=== PATIENT | female | born 1965 | race Caucasian/White ===

== ENCOUNTER → 2016-06-16 | Outpatient (CLI) | payer BC ==
[~2016-06-16] MED LIST: ASPI-999 PO; BENA20TA2 PO; FLUT9.9S NS; LORA10TA76 PO; PANT40TA2 PO
--- OUTSIDE RECORDS SUMMARY | 2016-06-16 07:34 | XMS REPORT | Continuity of Care Document ---
Author Author [facility] Organization [facility] Address Unknown Phone Unavailable Care Team Providers Care Professor Of Surgery Name Role Phone ARMAAN CASTREJON DO PCP Insurance Providers Payer Name Policy Number Subscriber Name Relationship [facility] [id number] EdiliaNabeel Rivera 18 Self / Same As Patient Advance Directives Directive Response Recorded Date/Time Advance Directives No 03/21/16 10:05am Health Care Power of Sap Gr[employer] Security No 03/21/16 10:05am Resuscitation Status Full Code 03/21/16 10:05am Problems No problem information available. Medications Current Home Medications Medication Dose Units Route Directions Days/Qty Instructions Start Date Aspirin 81 Mg 81 Mg Oral Daily 03/19/16 Benazepril Hcl 20 Mg 20 Mg Oral Twice A Day 03/19/16 Loratadine 10 Mg 10 Mg Oral Daily 03/19/16 Fluticasone Propionate 9.9 Ml 1 Ml Nasal As Needed 03/19/16 Pantoprazole Sodium 40 Mg 40 Mg Oral Daily 90 03/21/16 Social History Social History Problem Response Recorded Date/Time Alcohol Use Denies Use 03/21/2016 10:05am Recreational Drug Use No 03/21/2016 10:05am Recent Foreign Travel No 03/21/2016 10:05am Recent Infectious Disease Exposure No 03/21/2016 10:05am Sexually Transmitted Disease No 03/21/2016 10:05am HIV/AIDS No 03/21/2016 10:05am Smoking Status Never a Smoker 03/21/2016 10:05am Recent Hopitalizations No 03/21/2016 10:05am Sexually Transmitted Disease No 03/21/2016 10:05am Query Response Start Date Stop Date Smoking Status Never a Smoker Hospital Discharge Instructions Patient Instructions Physician Instructions New, Converted, or Re-Newed RX: RX on Chart Follow Up PRN Activity as tolerated High Fiber Diet 25g or more per day Avoid Alcohol, Caffeine, Spicy Kief and Acid foods. Drink 64 fluid oz or more of fluids per day. Symptoms to Report: Fever over 101 degree F, Nausea/Vomiting If any problems/questions: Contact your physician or go to Emergency Room Plan of Care Discharge Date 03/21/16 1:07pm Instructions/Education Provided COLONOSCOPY EGD-ESOPHAGOGASTRODUODENOSCOPY High Fiber Diet Prescriptions See Medication Section Functional Status No functional status results. Allergies, Adverse Reactions, Alerts Allergen Type Severity Reaction Status Last Updated Penicillins ([id number]) Allergy Intermediate GI UPSET SEVERE Active 03/19 Erythromycin base Allergy Intermediate GI UPSET Active 03/19/16 Immunizations No immunization records. Vital Signs Acute Vital Signs Vital Response Date/Time Temperature (Fahrenheit) 98.1 degrees F (97.6 - 99.5) 03/21/2016 1:07pm Temperature (Calculated Celsius) 36.28259 degrees C (36.4 - 37.5) 03/21/2016 1:07pm Temperature Source Tympanic 03/21/2016 1:07pm Pulse Rate (adult) 87 bpm (60 - 90) 03/21/2016 1:07pm Respiratory Rate 16 bpm (12 - 24) 03/21/2016 1:07pm O2 Sat by Pulse Oximetry 93 % (88 - 100) 03/21/2016 1:07pm Blood Pressure 117/77 mm Hg 03/21/2016 1:07pm Blood Pressure Mean 94 mm Hg 03/21/2016 10:05am Pain Numeric Pain Scale 1 03/21/2016 1:07pm Pain Intensity 0 03/21/2016 1:00pm Height (Feet) 5 feet 03/21/2016 10:28am Height (Inches) 6.00 inches 03/21/2016 10:28am Height (Calculated Centimeters) 167.533164 cm 03/21/2016 10:28am Weight (Pounds) 222 pounds 03/21/2016 10:28am Weight (Ounces) 0.0 oz 03/21/2016 10:28am Weight (Calculated Grams) 219230.51 gm 03/21/2016 10:28am Weight (Calculated Kilograms) 100.251960 kilograms 03/21/2016 10:28am Calculated BMI 35.8 03/21/2016 10:28am Results No known relevant diagnostic tests, laboratory data and/or discharge summary. Procedures Procedure Status Date Provider(s) Diagnostic colonoscopy Completed 03/21/16 ASHA SINGH MD Esophagogastroduodenoscopy (EGD) with dilation Completed 03/21/16 ASHA SINGH MD Encounters Encounter Location Arrival/Admit Date Discharge/Depart Date Attending Provider Departed Surgical Day Care [facility] 03/21/16 9:59am 1:07pm ASHA SINGH MD Registered Clinic [facility] 03/19/16 6:07am ASHA SINGH MD Registered Clinic [facility] 02/28/16 2:37pm ARMAAN CASTREJON DO
--- NOTE | 2016-06-16 09:20 | Diagnostic Imaging Report ---
PROCEDURE: MRI lumbar spine. TECHNIQUE: Multiplanar, multisequence MRI of the lumbar spine was performed without contrast. INDICATION: Back pain. FINDINGS: The alignment of the lumbar spine is normal. The vertebral body heights are well maintained. There is no spondylolysis or spondylolisthesis. No fractures are identified. Conus medullaris is seen at L1 and is normal in appearance. At T11-T12, there is slight loss of disc height and signal intensity and mild annular bulging. T12-L1 is unremarkable. L1-L2 is unremarkable. L2-L3 is unremarkable. At L3-L4, there is some minimal annular bulging with slight effacement of the ventral thecal sac. At L4-L5, there is some hypertrophic degenerative facet disease with thickening of the ligamentum flavum. At L5-S1, there is loss of disc height and signal intensity. There are degenerative changes in the endplates. There is broad-based annular bulging more prominent in a left lateral distribution. There is also some facet disease with thickening of the ligamentum flavum. There is slight effacement of the ventral thecal sac with some left neuroforaminal encroachment and mild encroachment upon the left lateral recess. The abdominal aorta is nonaneurysmal. There are no other focal soft tissue abnormalities. IMPRESSION: Mild diffuse lumbar spondylosis. This is most severe at L5-S1 where there is some broad-based annular bulging and facet disease. There is effacement of the left ventral thecal sac as well as encroachment upon the left neural foramen and left lateral recess. Dictated by: Dictated on workstation # [id number]
== END ==
LOC: RAD 07:31
PROVIDERS: ATTEND Nurse Practitioner
DX: M54.16 Radiculopathy, lumbar region (principal)
CPT/HCPCS: 72148

== ENCOUNTER → 2016-07-06 | Outpatient (CLI) | payer BC ==
--- OUTSIDE RECORDS SUMMARY | 2016-07-06 10:38 | XMS REPORT | Continuity of Care Document ---
Author Author [facility] Organization [facility] Address Unknown Phone Unavailable Care Team Providers Care Specifications Writer Name Role Phone ARMAAN CASTREJON DO PCP Insurance Providers Payer Name Policy Number Subscriber Name Relationship [facility] [id number] EdiliaNabeel Rivera 18 Self / Same As Patient Advance Directives Directive Response Recorded Date/Time Advance Directives No 03/21/16 10:05am Health Care Power of Health Program Director No 03/21/16 10:05am Resuscitation Status Full Code [...] more per day Avoid Alcohol, Caffeine, Spicy Royer and Acid foods. Drink 64 fluid oz [...] Type Severity Reaction Status Last Updated Penicillins ([id number]) Allergy Intermediate GI UPSET SEVERE Active 03/19 Erythromycin base Allergy Intermediate GI UPSET Active 03/19/16 Immunizations No immunization records. Vital Signs Acute Vital Signs Vital Response Date/Time Temperature (Fahrenheit) 98.1 degrees F (97.6 - 99.5) 03/21/2016 1:07pm Temperature (Calculated Celsius) 36.33731 degrees C (36.4 - 37.5) 03/21/2016 1:07pm [...] 6.00 inches 03/21/2016 10:28am Height (Calculated Centimeters) 167.694604 cm 03/21/2016 10:28am Weight (Pounds) 222 pounds 03/21/2016 10:28am Weight (Ounces) 0.0 oz 03/21/2016 10:28am Weight (Calculated Grams) 113705.51 gm 03/21/2016 10:28am Weight (Calculated Kilograms) 100.384889 kilograms 03/21/2016 10:28am Calculated BMI 35.8 03/21/2016 10:28am Results No known relevant diagnostic tests, laboratory data and/or discharge summary. Procedures Procedure Status Date Provider(s) Diagnostic colonoscopy Completed 03/21/16 ASHA SINGH MD Esophagogastroduodenoscopy (EGD) with dilation Completed 03/21/16 ASHA SINGH MD Encounters Encounter Location Arrival/Admit Date Discharge/Depart Date Attending Provider Departed [facility] Day [facility] 03/21/16 9:59am 1:07pm ASHA SINGH MD Registered Clinic [facility] 03/19/16 6:07am ASHA SINGH MD Registered Clinic [facility] 02/28/16 2:37pm ARMAAN CASTREJON DO
--- NOTE | 2016-07-06 12:50 | Diagnostic Imaging Report ---
PROCEDURE: CT head without contrast. TECHNIQUE: Multiple contiguous axial images were obtained through the brain without the use of intravenous contrast. INDICATION: Memory loss. FINDINGS: There is no intracranial hemorrhage, edema, or mass effect. The brain parenchyma and coffey-white matter differentiation is preserved. There is no hydrocephalus. No extra-axial fluid collection seen. The calvarium, the paranasal sinuses and orbits visualized portions appear grossly unremarkable. IMPRESSION: Unremarkable exam. Dictated by: Dictated on workstation # [id number]
--- NOTE | 2016-07-08 23:49 | ECHOCARDIOGRAPHY REPORT ---
PROCEDURE PHYSICIAN: JEREL MAYORGA DATE OF PROCEDURE: 07/06/2016 TWO DIMENSIONAL ECHOCARDIOGRAM REPORT PRIMARY PHYSICIAN: OTHER PHYSICIAN: REFERRING PHYSICIAN: Dr. Zamarripa ORDERING PHYSICIAN: INDICATION FOR THE PROCEDURE: Cardiac murmur. MEASUREMENTS DERIVED VALUES LV DIAMETER (LAX) NORMALS NORMALS Diastolic 4.5 (3.6-5.2) Eject. Fract. 60% (60%+/-6%) Systolic (2.3-3.9) Diastolic Vol. % Shortening (0.22-0.42) Systolic Vol. Aortic Root IVS THICKNESS Diastolic 1.1 (0.6-1.1) LVPW THICKNESS Diastolic 1 (0.6-1.1) LA DIAMETER Systolic 3.2 (2.1-3.7) FINDINGS: 1. Technical quality is good. 2. The left ventricle is normal in size with normal contractility. Systolic function appeared to be normal. Estimated ejection fraction 60%. 3. The left atrium is normal in size. No clot or thrombus were seen within the left atrium. 4. The right atrium and right ventricle are normal in size. No clot or thrombus were seen within the right side. 5. Mitral valve is normal in morphology. Mild mitral regurgitation noted by color Doppler flow. No mitral valve prolapse. No mitral valve stenosis. Doppler across the mitral valve showed equalization of E and A, which is suggestive of diastolic dysfunction. 6. Aortic valve is mildly calcified. No significant aortic stenosis or regurgitation was seen. 7. Tricuspid valve is normal in morphology with mild tricuspid regurgitation noted by color Doppler flow. Doppler across tricuspid valve estimated pulmonary artery pressure of 7+ right atrial pressure. 8. Pulmonic valve is functioning normally. 9. No pericardial effusion. IN CONCLUSION: 1. Normal left ventricular size and systolic function. Estimated ejection fraction 60%. Diastolic dysfunction is suggested by Doppler. 2. Mild mitral and tricuspid regurgitation. 3. Estimated pulmonary artery pressure of 15 mmHg. Job ID: [id number] Dictated Date: 07/08/2016 10:27:17 Psych Coordinator Date: 07/08/2016 23:45:04 / kellee
== END ==
LOC: CARD 10:34
PROVIDERS: ATTEND Family Medicine
DX: R01.1 Cardiac murmur, unspecified (principal); R41.3 Other amnesia
CPT/HCPCS: 70450; 93306

== ENCOUNTER → 2016-07-13 | Outpatient (CLI) | payer BC | LOC: RT 11:18 | PROVIDERS: ATTEND Family Medicine | DX: R01.1 Cardiac murmur, unspecified (principal) | CPT/HCPCS: 94060; 94726; 94729 ==

== ENCOUNTER 2016-12-05 18:20 | Emergency (ER) | payer BC ==
[~2016-12-05] VITALS: Ht 167.6 cm; Wt 99.8 kg
[2016-12-05] MEDS ORDERED: FLUO20CA42 PO (18:43)
--- NOTE | 2016-12-05 18:49 | ED Lower Extremity ---
General Chief Complaint: Lower Extremity Stated Complaint: RT ANKLE INJ Nursing Triage Note: PT STATES ROLLED R ANKLE EARLIER TODAY Nursing Sepsis Screen: No Definite Risk Source: patient History of Present Illness Time seen by provider: 18:35 Initial Comments PT STATES SHE ROLLED HER RIGHT ANKLE AT 1215 TODAY WENT BACK TO WORK, BUT PAIN HAS STEADILY GOTTEN WORSE AND SINCE AROUND 1530 SHE HAS BEEN UNABLE TO BEAR WEIGHT ON IT PT ARRIVES IN ER USING CRUTCHES NO PARESTHESIAS OR MOTOR DEFICITS PAIN IS AROUND RIGHT LATERAL MALLEOLUS NO PRIOR INJURY TO THIS ANKLE NO OTHER INJURIES PCP: DR. CASTREJON Allergies and Home Medications Allergies Coded Allergies: Penicillins (Verified Allergy, Intermediate, GI UPSET SEVERE, 03/19/16) erythromycin base (Verified Allergy, Intermediate, GI UPSET, 03/19/16) Home Medications Aspirin 81 Mg Tab.chew, 81 MG PO DAILY, (Reported) Benazepril HCl 20 Mg Tablet, 20 MG PO BID, (Reported) Fluoxetine HCl 20 Mg Capsule, 20 MG PO DAILY, (Reported) Fluticasone Propionate 9.9 Ml [place].susp, 1 ML NS PRN, (Reported) Loratadine 10 Mg Tablet, 10 MG PO DAILY, (Reported) Naproxen 500 Mg Tablet, 500 MG PO BID, #20 Prescribed by: CHRIS BORJAS on 12/05/161858 Tramadol HCl 50 Mg Tablet, 50 MG PO Q4H, #20 Prescribed by: CHRIS BORJAS on 12/05/161858 Constitutional: no symptoms reported Musculoskeletal: see HPI Skin: no symptoms reported Psychiatric/Neurological: No Symptoms Reported Past Vumokhr-Tnydsg-Rzkisw Hx Patient Social History Alcohol Use: Denies Use Recreational Drug Use: No Smoking Status: Never a Smoker Recent Foreign Travel: No Contact w/Someone Who Travel: No Recent Infectious Disease Expo: No Recent Hopitalizations: No Seasonal Allergies Seasonal Allergies: Yes Surgeries HX Surgeries: Yes (OOPHORECTOMY, L ACL RECONSTRUCTION) Surgeries: Gallbladder, Hysterectomy, Orthopedic Respiratory Hx Respiratory Disorders: No Cardiovascular Hx Cardiac Disorders: Yes Cardiac Disorders: Hypertension Neurological Hx Neurological Disorders: No Reproductive System Hx Reproductive Disorders: No Sexually Transmitted Disease: No HIV/AIDS: No 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 History: Hysterectomy, Menopausal Genitourinary Hx Genitourinary Disorders: No Gastrointestinal Hx Gastrointestinal Disorders: Yes Gastrointestinal Disorders: Gastroesophageal Reflux Musculoskeletal Hx Musculoskeletal Disorders: Yes (MILD ARTHRITIS; LEFT ACL RECONSTRUCTION) Musculoskeletal Disorders: Arthritis Endocrine Hx Endocrine Disorders: No HEENT HX ENT Disorders: Yes (GLASSES) Loss of Vision: Bilateral Hearing Impairment: Denies Cancer Hx Cancer: No Psychosocial Hx Psychiatric Problems: No Integumentary HX Skin/Integumentary Disorder: No Blood Transfusions Hx Blood Disorders: Yes (HX ANEMIA) Adverse Reaction to a Blood Tr: No (N/A) Physical Exam Vital Signs Vital Sign - Last 12Hours 12/05/16 18:35 Temp 97.4 Pulse 96 Resp 18 B/P (MAP) 136/80 Pulse Ox 96 Capillary Refill : Less Than 3 Seconds General Appearance: WD/WN, no apparent distress Ankles: left ankle normal inspection, right ankle bone tenderness, right ankle limited range of motion, right ankle soft tissue tenderness, right ankle swelling, right ankle other (TO LATERAL MALLEOLUS AREA) Feet: right foot normal inspection Neurologic/Tendon: normal sensation, normal motor functions, normal tendon functions Neurologic/Psychiatric: experimental machinist II-XII nml as tested, no motor/sensory deficits, alert, oriented x 3 Skin: normal color, warm/dry, No ecchymosis Splinting and Joint Reduction : Rigo wrap: Yes Immobilizers: Step Light Walker s/m/lg Progress/Results/Core Measures Results/Orders My Orders Orders - CHRIS BORJAS DO Ankle, Right, 3 Views (12/05/16 18:35) Rigo Bandage (12/05/16 18:52) Steplite (12/05/16 18:52) Vital Signs/I&O Vital Sign - Last 12Hours 12/05/16 12/05/16 18:35 19:03 Temp 97.4 Pulse 96 96 Resp 18 18 B/P (MAP) 136/80 Pulse Ox 96 96 Blood Pressure Mean: 98 Diagnostic Imaging Comments XRAYS RIGHT ANKLE--NO ACUTE PROCESS, PENDING RADIOLOGIST REVIEW--NO ACUTE PROCESS, PER RADIOLOGIST REPORT @ 1917 Reviewed: Reviewed by Me Departure Impression Impression: Primary Impression: Right ankle sprain Disposition: 01 HOME, SELF-CARE Condition: Stable Departure-Patient Inst. Referrals: ARMAAN CASTREJON DO (PCP/Family) Primary Care Physician Patient Instructions: Ankle Sprain (DC), Going Up and Down Curbs or Stairs With a Walker or Crutches, How to Use Crutches, How to Use an Elastic Bandage, SPLINT CARE Add. Discharge Instructions: RIGO WRAP, BOOT AND CRUTCHES NEEDED FOR COMFORT ICE TO AREA AT 20 MINUTE INTERVALS ELEVATE FOOT MUCH POSSIBLE FOLLOW UP WITH DR. CASTREJON IN 1 WEEK IF NO BETTER All discharge instructions reviewed with patient and/or family. Voiced understanding. Scripts Tramadol HCl (Ultram) 50 Mg Tablet 50 MG PO Q4H, #20 TAB Prov: CHRIS BORJAS DO 12/05/16 Naproxen (Naproxen) 500 Mg Tablet 500 MG PO BID, #20 TAB Prov: CHRIS BORJAS DO 12/05/16 CHRIS BORJAS DO Dec 05, 2016 18:49
[2016-12-05] MEDS ORDERED: NAPR500T3 PO (18:59)
[2016-12-05] MEDS ORDERED: TRAM-42 PO (18:59)
[2016-12-05 19:03] VITALS: BP 136/80
--- NOTE | 2016-12-05 19:09 | Diagnostic Imaging Report ---
INDICATION: Pain, twisted ankle. COMPARISON: None available. TECHNIQUE: Three radiographs of the right ankle dated December 05, 2016. FINDINGS: No acute fracture or dislocation. No destructive osseous process. The talar domes are unremarkable. Ankle mortise is symmetric. No suspicious radiopaque foreign body. IMPRESSION: No acute osseous abnormality. Dictated by: Dictated on workstation # [id number]
--- OUTSIDE RECORDS SUMMARY | 2016-12-06 11:34 | XMS REPORT | Continuity of Care Document ---
Author Author [facility] Organization [facility] Address Unknown Phone Unavailable Allergies Active Description Code Type Severity Reaction Onset Reported/Identified Relationship to Patient Clinical Status Yes erythromycin base [id number] Drug Allergy Moderate GI UPSET 03/19/2016 Yes Penicillins [id number] Drug Allergy Moderate GI UPSET SEVERE 03/19/2016 Medications Problems Date Dx Coded Attending Type Code Diagnosis Diagnosed By 05/21/2014 JAKOB CALDERON AERONAUTICS TEACHER Ot V76.12 09/20/2014 JAKOB CALDERON AERONAUTICS TEACHER Ot V76.12 04/28/2015 JAKOB CALDERON AERONAUTICS TEACHER Ot V76.12 06/13/2015 JAKOB CALDERON AERONAUTICS TEACHER Ot V76.12 01/26/2016 JAKOB CALDERON AERONAUTICS TEACHER Ot V76.12 OTH SCREEN MAMMO-MALIGN NEOPLASM OF JOE 02/28/2016 JAKOB CALDERON AERONAUTICS TEACHER Ot V76.12 OTH SCREEN MAMMO-MALIGN NEOPLASM OF JOE 02/29/2016 ARMAAN CASTREJON DO S Ot Z12.31 ENCNTR SCREEN MAMMOGRAM FOR MALIGNANT NE 02/29/2016 ARMAAN CASTREJON DO Ot Z12.31 ENCNTR SCREEN MAMMOGRAM FOR MALIGNANT NE 03/19/2016 ARMAAN CASTREJON DO Ot Z12.31 ENCNTR SCREEN MAMMOGRAM FOR MALIGNANT NE 03/20/2016 ASHA SINGH MD Ot K21.9 GASTRO-ESOPHAGEAL REFLUX DISEASE WITHOUT 03/20/2016 ASHA SINGH MD Ot Z01.818 ENCOUNTER FOR OTHER PREPROCEDURAL EXAMIN 03/20/2016 ASHA SINGH MD Ot Z12.11 ENCOUNTER FOR SCREENING FOR MALIGNANT NE 03/21/2016 ASHA SINGH MD Ot K21.0 GASTRO-ESOPHAGEAL REFLUX DISEASE WITH ES 03/21/2016 ASHA SINGH MD Ot K44.9 DIAPHRAGMATIC HERNIA WITHOUT OBSTRUCTION 03/21/2016 ASHA SINGH MD Ot K64.1 SECOND DEGREE HEMORRHOIDS 03/21/2016 ASHA SINGH MD Ot Z12.11 ENCOUNTER FOR SCREENING FOR MALIGNANT NE 03/22/2016 ASHA SINGH MD Ot K21.0 GASTRO-ESOPHAGEAL REFLUX DISEASE WITH ES 03/22/2016 ASHA SINGH MD Ot K44.9 DIAPHRAGMATIC HERNIA WITHOUT OBSTRUCTION 03/22/2016 ASHA SINGH MD Ot K64.1 SECOND DEGREE HEMORRHOIDS 03/22/2016 ASHA SINGH MD Ot Z12.11 ENCOUNTER FOR SCREENING FOR MALIGNANT NE 03/27/2016 ASHA SINGH MD Ot K21.0 GASTRO-ESOPHAGEAL REFLUX DISEASE WITH ES 03/27/2016 ASHA SINGH MD Ot K44.9 DIAPHRAGMATIC HERNIA WITHOUT OBSTRUCTION 03/27/2016 ASHA SINGH MD Ot K64.1 SECOND DEGREE HEMORRHOIDS 03/27/2016 ASHA SINGH MD Ot Z12.11 ENCOUNTER FOR SCREENING FOR MALIGNANT NE 06/19/2016 UMESH WALLER AERONAUTICS TEACHER Ot M54.16 RADICULOPATHY, LUMBAR REGION 06/21/2016 UMESH WALLER AERONAUTICS TEACHER Ot M54.16 RADICULOPATHY, LUMBAR REGION 06/22/2016 JAKOB CALDERON AERONAUTICS TEACHER Ot V76.12 OTH SCREEN MAMMO-MALIGN NEOPLASM OF JOE 06/22/2016 ARMAAN CASTREJON DO S Ot Z12.31 ENCNTR SCREEN MAMMOGRAM FOR MALIGNANT NE 06/22/2016 ASHA SINGH MD Ot K21.9 GASTRO-ESOPHAGEAL REFLUX DISEASE WITHOUT 06/22/2016 ASHA SINGH MD Ot Z01.818 ENCOUNTER FOR OTHER PREPROCEDURAL EXAMIN 06/22/2016 ASHA SINGH MD Ot Z12.11 ENCOUNTER FOR SCREENING FOR MALIGNANT NE 06/22/2016 UMESH WALLER AERONAUTICS TEACHER Ot M54.16 RADICULOPATHY, LUMBAR REGION 07/04/2016 JAKOB CALDERON M AERONAUTICS TEACHER Ot V76.12 OTH SCREEN MAMMO-MALIGN NEOPLASM OF JOE 07/04/2016 JAMES CASTREJON DOLINE S Ot Z12.31 ENCNTR SCREEN MAMMOGRAM FOR MALIGNANT NE 07/04/2016 ASHA SINGH MD, Ot K21.9 GASTRO-ESOPHAGEAL REFLUX DISEASE WITHOUT 07/04/2016 ASHA SINGH MD Ot Z01.818 ENCOUNTER FOR OTHER PREPROCEDURAL EXAMIN 07/04/2016 ASHA SINGH MD Ot Z12.11 ENCOUNTER FOR SCREENING FOR MALIGNANT NE 07/04/2016 UMESH WALLER Ot M54.16 RADICULOPATHY, LUMBAR REGION 07/09/2016 ORENDER DO, ARMAAN S Ot R01.1 CARDIAC MURMUR, UNSPECIFIED 07/09/2016 ORENDER DO, ARMAAN S Ot R41.3 OTHER AMNESIA 07/13/2016 ORENDER DO, ARMAAN S Ot R01.1 CARDIAC MURMUR, UNSPECIFIED 07/18/2016 UMESH WALLER Ot M54.16 RADICULOPATHY, LUMBAR REGION 07/24/2016 ORENDER DO, ARMAAN S Ot R01.1 CARDIAC MURMUR, UNSPECIFIED 07/24/2016 ORENDER DO, ARMAAN S Ot R41.3 OTHER AMNESIA 07/24/2016 ORENDER DO, ARMAAN S Ot R01.1 CARDIAC MURMUR, UNSPECIFIED Procedures Results Encounters ACCT No. Visit Date/Time Discharge Status Pt. Type Provider Facility Loc./Unit Complaint [id number] 03/21/2016 09:59:00 2015 13:07:00 DIS Outpatient ASHA SINGH MD [facility] SCREENING; REFLUX [id number] 05/03/2014 14:57:00 2014 23:59:59 CLS Outpatient JAKOB CLADERON [facility] RAD SCREENING [id number] 11/12/2016 11:52:00 PEN Preadmit ORENDER DO, ARMAAN S [facility] RAD Z12.31 SCREENING [id number] 07/13/2016 11:18:00 ACT Outpatient ORENDER DO, ARMAAN S [facility] RT R01.1 [id number] 07/06/2016 10:34:00 ACT Outpatient ORENDER DO, ARMAAN S [facility] CARD CARDIAC MURMUR,MEMORY LOSS [id number] 06/22/2016 17:37:00 Document Registration [id number] 06/22/2016 17:37:00 Document Registration [id number] 06/16/2016 07:31:00 ACT Outpatient UMESH WALLER [facility] RAD LUMBAR RADICULOPATHY [id number] 03/19/2016 06:07:00 ACT Outpatient ASHA SINGH MD [facility] PREOP SCREENING;REFLUX [id number] 02/28/2016 14:37:00 ACT Outpatient ARMAAN CASTREJON DO [facility] RAD SCREENING
== END 2016-12-05 19:04 | disposition home or self-care (01) ==
LOC: EDUNIT# 18:20 → ER 18:22
DX: S93.401A Sprain of unspecified ligament of right ankle, initial encounter (principal); I10 Essential (primary) hypertension; Z79.82 Long term (current) use of aspirin; Z90.710 Acquired absence of both cervix and uterus; X50.0XXA Overexertion from strenuous movement or load, initial encounter
CPT/HCPCS: 73610; 99283

== ENCOUNTER → 2018-04-04 | Outpatient (CLI) | payer BC ==
[~2018-04-04] MED LIST changes: -BENA20TA2 PO; +BENA20TA7 PO; +FLUO20CA42 PO; +NAPR-915 PO; +TRAM-42 PO
--- NOTE | 2018-04-07 09:06 | Diagnostic Imaging Report ---
Indication: Routine screening. Comparison is made with prior mammogram from 02/28/2017 and 02/28/2016. 2-D and 3-D bilateral screening mammography was performed with CAD. Scattered fibroglandular densities are identified bilaterally. The parenchymal pattern is stable. No mass or malignant appearing microcalcifications are seen. The axillae are unremarkable. Impression: BI-RADS category 1 No mammographic features suspicious for malignancy are identified. ACR BI-RADS Category 1: Negative. Result letter will be mailed to the patient. Note: At least 10% of breast cancer is not imaged by mammography. Dictated by: Dictated on workstation # [id number]
== END ==
LOC: RAD 14:15
PROVIDERS: ATTEND Family Medicine
DX: Z12.31 Encounter for screening mammogram for malignant neoplasm of breast (principal)
CPT/HCPCS: 77067

== ENCOUNTER → 2019-06-18 | Outpatient (CLI) | payer BC ==
--- NOTE | 2019-06-19 10:18 | Diagnostic Imaging Report ---
INDICATION: Routine screening. Comparison is made to prior mammogram 04/04/2018 and 02/28/2017. 2-D and 3-D bilateral screening mammography was performed with CAD. Scattered fibroglandular densities are identified bilaterally. No mass or malignant-appearing microcalcifications are seen. Axillae are unremarkable. IMPRESSION: BI-RADS Category 1 No mammographic features suspicious for malignancy are identified. ACR BI-RADS Category 1: Negative. Result letter will be mailed to the patient. Note: At least 10% of breast cancer is not imaged by mammography. Dictated by: Dictated on workstation # [id number]
== END ==
LOC: RAD 14:54
PROVIDERS: ATTEND Family Medicine
DX: Z12.31 Encounter for screening mammogram for malignant neoplasm of breast (principal)
CPT/HCPCS: 77067

== ENCOUNTER → 2021-05-23 | Outpatient (CLI) | payer BC ==
[~2021-05-23] MED LIST changes: +BENA-3 PO; -BENA20TA7 PO
--- NOTE | 2021-05-23 17:56 | Diagnostic Imaging Report ---
INDICATION: Routine screening. COMPARISON is made with prior mammograms of 06/18/2019 and 04/04/2018. 2-D and 3-D bilateral screening mammography was performed with CAD. Scattered fibroglandular densities are identified bilaterally. The parenchymal pattern is stable. No mass or malignant-appearing microcalcifications are seen. Axillae are unremarkable. IMPRESSION: BI-RADS Category 1 No mammographic features suspicious for malignancy are identified. ACR BI-RADS Category 1: Negative. Result letter will be mailed to the patient. Note: At least 10% of breast cancer is not imaged by mammography. Dictated by: Dictated on workstation # [id number]
== END ==
LOC: RAD 15:45
PROVIDERS: ATTEND Family Medicine
DX: Z12.31 Encounter for screening mammogram for malignant neoplasm of breast (principal)
CPT/HCPCS: 77063; 77067

== ENCOUNTER → 2022-07-13 | Outpatient (CLI) | payer BC ==
--- NOTE | 2022-07-16 09:45 | Diagnostic Imaging Report ---
Indication: Routine screening. Comparison is made with prior mammogram from 05/23/2021 and 06/18/2019. 2-D and 3-D bilateral screening mammography was performed with CAD. CAD is utilized. The current study was also evaluated with a Computer Aided Detection (CAD) system. Scattered fibroglandular densities are identified bilaterally. The parenchymal pattern is stable. No mass or malignant-appearing microcalcifications are seen. Axillae are unremarkable. IMPRESSION: BI-RADS Category 1 No mammographic features suspicious for malignancy are identified. ACR BI-RADS Category 1: Negative. Result letter will be mailed to the patient. Note: At least 10% of breast cancer is not imaged by mammography. Dictated by: Dictated on workstation # [id number]
== END ==
LOC: RAD 15:01
PROVIDERS: ATTEND Family Medicine
DX: Z12.31 Encounter for screening mammogram for malignant neoplasm of breast (principal)
CPT/HCPCS: 77063; 77067